=== PATIENT | male | born 1990 | race Two or more races ===

== ENCOUNTER 2018-08-31 08:13 | Outpatient (CLI) | payer OTHER | END 2018-08-31 08:21 | disposition home or self-care (01) | LOC: SONOGRAMA 08:13 | DX: E04.1 Nontoxic single thyroid nodule (principal) ==

== ENCOUNTER 2020-01-07 08:47 | Outpatient (CLI) | payer OTHER | END 2020-01-07 08:54 | disposition home or self-care (01) | LOC: SONOGRAMA 08:47 | PROVIDERS: ATTEND Pathology Anatomic Pathology & Clinical Pathology | DX: E04.1 Nontoxic single thyroid nodule (principal) ==